=== PATIENT | female | born 1985 ===

== ENCOUNTER 2022-10-01 15:41 | Emergency (ER) | payer OTHER, SELFPAY ==
--- NOTE | 2022-10-01 16:10 | ED.GENADULT ---
HPI - General Adult General Chief complaint: General Medical Stated complaint: Medication refill Related Data Allergies Allergy/AdvReac Type Severity Reaction Status Date / Time No Known Allergies Allergy Verified 10/01/22 16:11 PMF Social History Social History Advance Directives: No Advance Directives Information Provided: No Physical Exam ED Vital Signs: BMI result Body Mass Index 20.7 Course Course Course Narrative: 36F no complaints other than wanting thyroid medication refilled. VS Reviewed GEN: NAD EARS: wnl THROAT: wnl LUNGS: CTAB CVS: RRR ABD: NT/ND Discharge Plan Discharge Clinical Impression: Medication refill Patient Disposition: Left Without Being Seen Interventions: LWBS Worksheet Last Done: 10/01/22 19:24 Discharge Date/Time: 10/01/22 19:25
[2022-10-01 16:12] VITALS: BP 105/61; PULSE 74; RESP 14; TEMP 36.4; O2SAT 99; BMI 20.7
--- NOTE | 2022-10-01 19:23 | PC.NURSE ---
pt not in waiting room at change of shift.
== END 2022-10-01 19:25 | disposition left against medical advice (07) ==
PROVIDERS: Emergency Provider Emergency Medicine
DX: Z76.0 Encounter for issue of repeat prescription (principal)
CPT/HCPCS: 99281